=== PATIENT | male | born 1980 | race Caucasian/White ===

== ENCOUNTER 2024-12-04 10:01 | Inpatient (IN) | payer OTHER ==
[~2024-12-04] VITALS: Ht 185.4 cm; Wt 72.0 kg
[2024-12-04 10:51] LABS: PLATELET COUNT (AUTO) 240 K/uL (150-450); RED BLOOD CELL COUNT(AUTO) 4.47 MIL/uL (4.50-5.90); RED CELL DISTRIBUTION WIDTH 13.0 % (11.5-14.5); WHITE BLOOD COUNT (AUTO) 5.5 K/uL (4.5-11.0)
[2024-12-04] MEDS: ONDANSETRON HCL 4 MG/2 ML VIAL IVP ONE (10:51)
[2024-12-04] MEDS: SODIUM CHLORIDE 0.9% 1,000 ML IV ONE ×2 (10:51→15:21)
[2024-12-04] MEDS: BUPRENORPHINE HCL/NALOXONE HCL 8-2 MG SUBLINGUAL TABLET SL ONE (10:51)
[2024-12-04 10:54] LABS: CALCIUM, TOTAL 8.8 mg/dL (8.8-10.5); CREATININE 0.98 mg/dL (0.60-1.30); GLOMERULAR FILTR. RATE CALC > 60 mL/min (>60); GLUCOSE,RANDOM 111 mg/dL (70-110); SODIUM SERUM 141 mmol/L (136-145); UREA NITROGEN, BLOOD 19 mg/dL (7-18)
[2024-12-04 11:00] LABS: ASPARTATE AMINOTRANSFERASE 23.0 U/L (15-37); TOTAL PROTEIN, SERUM 7.1 g/dL (6.4-8.2)
[2024-12-04] MEDS ORDERED: ONDANSETRON HCL 4 MG/2 ML VIAL IVP PRN (11:15)
[2024-12-04] MEDS ORDERED: MAGNESIUM HYDROXIDE SUSPENSION 30 ML UDCUP PO PRN (11:15)
[2024-12-04] MEDS: BUPRENORPHINE HCL/NALOXONE HCL 2-0.5 MG SUBLINGUAL TABLET SL ONE (11:18)
[2024-12-04 17:32] VITALS: BP 119/82; PULSE 62; RESP 18; TEMP 97.7; O2SAT 100
[2024-12-04 18:23] LABS: APPEARANCE,URINE CLEAR (CLEAR); GLUCOSE, URINE (UA) NEGATIVE (NEGATIVE); LEUKOCYTE ESTERASE ,URINE NEGATIVE (NEGATIVE); NITRATE,URINE NEGATIVE (NEGATIVE); OCCULT BLOOD,URINE NEGATIVE (NEGATIVE); SPECIFIC GRAVITIY, URINE 1.022 (1.003-1.030)
[2024-12-04 19:56] VITALS: BP 108/85; PULSE 59; RESP 18; TEMP 97.2; O2SAT 100
[2024-12-04] MEDS: LORazepam 2 MG/ML VIAL IVP PRN (23:49)
[2024-12-05 05:17] VITALS: BP 122/81; PULSE 73; RESP 18; TEMP 97.5; O2SAT 100
[2024-12-05 07:44] VITALS: BP 119/76; PULSE 56; RESP 18; TEMP 97.7; O2SAT 100
[2024-12-05] MEDS: FAMOTIDINE 20 MG TABLET PO SCH (08:35)
[2024-12-05] MEDS ORDERED: ONDANSETRON 4 MG TABLET PO PRN (14:15)
[2024-12-05] MEDS: ACETAMINOPHEN 325 MG TABLET PO PRN (18:52)
[2024-12-05 19:12] VITALS: BP 139/81; PULSE 63; RESP 18; TEMP 98.4; O2SAT 99
[2024-12-06] MEDS: ZOLPIDEM TARTRATE 5 MG TABLET PO PRN (01:17)
[2024-12-06 04:05] VITALS: BP 124/77; PULSE 69; RESP 18; TEMP 98.6; O2SAT 96
[2024-12-06 07:42] LABS: PH,URINE DRUG SCREEN 7.0 (5.0-8.0)
[2024-12-06 07:53] LABS: AMPHET/METH SCREEN,URINE POSITIVE (NEGATIVE); BARBITURATE SCREEN, URINE NEGATIVE (NEGATIVE); CANNABINOID SCREEN,URINE NEGATIVE (NEGATIVE); COCAINE SCREEN,URINE NEGATIVE (NEGATIVE); METHADONE SCREEN, URINE NEGATIVE (NEGATIVE)
[2024-12-06 08:13] LABS: ALCOHOL, URINE DRUG SCREEN NEGATIVE (NEGATIVE)
[2024-12-06 08:41] VITALS: BP 110/80; PULSE 60; RESP 18; TEMP 97.8; O2SAT 97
[2024-12-06 21:21] VITALS: BP 116/71; PULSE 75; RESP 18; TEMP 98.6; O2SAT 99
[2024-12-07 04:51] VITALS: BP 125/89; PULSE 72; RESP 18; TEMP 97.9; O2SAT 98
[2024-12-07 08:00] VITALS: BP 119/84; PULSE 64; RESP 19; TEMP 98.4
== END 2024-12-07 16:00 | DRG 897 ==
LOC: EMS 10:07 → EDH 11:14 → 6N 17:18
PROVIDERS: ADMIT Internal Medicine; ATTEND Internal Medicine
DX: F19.139 Other psychoactive substance abuse with withdrawal, unspecified (principal); F11.13 Opioid abuse with withdrawal
CPT/HCPCS: 80048; 80076; 80307; 81003; 85025; 96374; 99285; J2060; J2405; J7030